=== PATIENT | male | born 1990 | race Two or more races ===

== ENCOUNTER 2019-02-12 09:31 | Outpatient (CLI) | payer OTHER | END 2019-02-12 09:35 | disposition home or self-care (01) | LOC: LAB 09:31 | DX: E55.9 Vitamin D deficiency, unspecified (principal); E03.8 Other specified hypothyroidism; E78.49 Other hyperlipidemia ==

== ENCOUNTER 2019-02-12 10:32 | Outpatient (CLI) | payer OTHER | END 2019-02-12 17:00 | disposition home or self-care (01) | LOC: SONOGRAMA 10:32 | DX: R10.13 Epigastric pain (principal) ==